=== PATIENT | female | born 1945 | race Caucasian/White ===

== ENCOUNTER → 2016-08-15 | Outpatient (CLI) | payer OTHER | END | disposition home or self-care (01) | DX: M19.011 Primary osteoarthritis, right shoulder (principal) | CPT/HCPCS: 97165 GO; 97537 GO; G8984 GO; G8985 GO; G8986 GO ==

== ENCOUNTER 2016-09-20 21:45 | Inpatient (IN) | payer OTHER ==
[~2016-09-20] VITALS: Ht 149.9 cm; Wt 70.2 kg
[~2016-09-20 21:45] MED LIST: ASPIR 8181 M1 PO; CALCIUM +D3 PO; CENTRUM SILVER1 EAC4 PO; IRON325 M1 PO; LEVOXYL50 MCG PO; LOPRESSOR50 MG PO; MEVACOR20 MG PO; VALSARTAN-HCTZ1 EACH PO
[2016-09-21 10:28] VITALS: BP 158/70
[2016-09-21 16:26] VITALS: BP 148/69
[2016-09-21 19:42] VITALS: BP 119/58
[2016-09-21 23:35] VITALS: BP 119/51
[2016-09-22 04:43] VITALS: BP 116/55
[2016-09-22 06:15] LABS: HEMATOCRIT 31.6 % (36.0-46.0); MCV 89.5 FL (83-99)
[2016-09-22 07:54] VITALS: BP 107/55
[2016-09-22 11:00] VITALS: BP 108/58
== END 2016-09-22 13:35 | DRG 483 ==
LOC: 2SOUTH → ENRESERV 21:45 → 2SOUTH 09-21 09:19 → 3EAST 09-21 09:47 → 2SOUTH 09-21 11:25 → ENRESERV 09-21 14:22 → 2SOUTH 09-21 15:45 → 3EAST 09-21 15:53
PROVIDERS: Orthopaedic Surgery
PROC: 0RRJ0J6 Replacement of Right Shoulder Joint with Synthetic Substitute, Humeral Surface, Open Approach (ICD-10-PCS; principal; 2016-09-21)
DX: M19.011 Primary osteoarthritis, right shoulder (principal); I10 Essential (primary) hypertension; E78.5 Hyperlipidemia, unspecified; E03.9 Hypothyroidism, unspecified; Z79.82 Long term (current) use of aspirin
CPT/HCPCS: 85014; 85018; J0330; J0690; J1100; J2250; J2405; J2710; J2765; J2795; J3010; J7030; J7050